=== PATIENT | female | born 1990 | race Caucasian/White ===

== ENCOUNTER 2017-06-05 09:21 | Emergency (ER) | payer BC ==
--- NOTE | 2017-06-05 10:24 | PD ---
HPI Chief Complaint decreased movement Date Seen: Jun 05, 2017 Travel History International Travel<30 Days: No Contact w/Intl Traveler<30Days: No History of Present Illness HPI Ms. Griffin is a 26 yo G1 patient of [address] King at 22 weeks GA who presents with complaint of decreased movement. Patient reports that she has felt her gestation move frequently /regularly for the past 2 weeks but states that since last night she has not felt him move as often. Patient does not report any associated vaginal bleeding or abdominal pain ; she has had some mild constant vaginal discharge during . Patient reports that she has had morning sickness frequently during , but did not have any vomiting today or yesterday morning so this also concerned her that there might something wrong. Patient reports occasional dysuria (pressure prior to urinating and burning with urination) every several days for the past several weeks; she has not felt this today. Patient also reports occasional headaches recently. No chest pain, shortness of breath or leg swelling. No reported fevers or abnormal bowel movements. Patient has PMH asthma and uses Albuterol PRN; she has not needed this recently. Patient reports benign course. She also had reassuring anatomical US recently; she reports normal fetus and posterior placenta. Patient was prescribed Diclegis for morning sickness but has not needed to take. Weeks Gestation: 22 : 1 History Past Medical History Narrative Medical Asthma- uses Ventolin with exercise Obstetric History Obstetric History G1 Past Surgical History Surgical History: No Previous Surgery Family History Narrative Family History unspecified lymphoma prostate cancer heart disease ?breast cancer Family History: Negative Social History Alcohol Use: No Tobacco Use: No Substance Abuse: No Review of Systems General / Constitutional: No: Fever Eyes: No: Blurred Vision HENT: No: Headaches Cardiovascular: No: Chest Pain or Discomfort Respiratory: No: Short of Breath Gastrointestinal: Vomiting (none for past 2 days; morning sickness over past several weeks) Genitourinary: Dysuria (occasional dysuria, none today), No: Urgency Skin: No Rash, No Itching Neurologic: No: Weakness, Dizziness Psychiatric: No: Anxiety Physical Exam T 97.7 BP 115/57 HR 72 RR 18 Narrative GENERAL: Well-nourished, well-developed patient. SKIN: Warm and dry. HEAD: Normocephalic and atraumatic. EYES: No scleral icterus. No injection or drainage. ENT: No nasal drainage noted. Mucous membranes pink. Airway patent. CARDIOVASCULAR: Regular rate and rhythm without murmurs. Normal perfusion RESPIRATORY: CTAB; normal rate EXTREMITIES: No cyanosis or edema. BACK: Nontender without obvious deformity. No CVA tenderness. NEUROLOGICAL: Awake and alert. Motor and sensory function grossly within normal limits. ABDOMEN/GI: Abdomen soft, non-tender, bowel sounds present, no rebound, no guarding Gravid GENITOURINARY: Membranes: Intact FHT's: FHR 142 MDM Medical Record Reviewed: Yes Narrative Course / MDM Ms. Griffin is a 26 yo G[address] King at 22 weeks GA who presents with complaint of decreased movement. -FHR 142 -Stable maternal VS -Physical exam benign -Urinalysis obtained- negative Plan: -Patient was reassured that her presence of normal heart tones was very reassuring at this gestational age. Patient instructed that she was safe to return home and follow- up with Dr. King. Patient advised to return to OB ED with any persistent concerns for fetus or any vaginal bleeding, abdominal pain, or other new symptoms. Discussed with Andah Diagnosis Diagnosis: Primary Impression: Decreased movement Additional Impression: 22 weeks gestation of Disposition: DISCHARGE HOME Condition: Stable Patient Instructions: General Instructions, Movement (ED) Floyd Lagunas MD, R3 Jun 05, 2017 10:24
== END 2017-06-05 10:38 | disposition home or self-care (01) ==
LOC: HOBED 09:21
DX: O36.8120 Decreased fetal movements, second trimester, not applicable or unspecified (principal); O99.512 Diseases of the respiratory system complicating pregnancy, second trimester; J45.909 Unspecified asthma, uncomplicated; Z3A.22 22 weeks gestation of pregnancy
CPT/HCPCS: 99283

== ENCOUNTER 2017-09-30 00:33 | Inpatient (IN) | payer BC ==
[~2017-09-30] VITALS: Ht 157.5 cm; Wt 64.4 kg
[2017-09-30] MEDS ORDERED: UNIS25TA3 (01:15)
[2017-09-30] MEDS ORDERED: PRENTAB7 (01:15)
[2017-09-30] MEDS ORDERED: LACTATED RINGER'S 1000 ML INJ 1,000 ML IV PRN (01:29)
[2017-09-30] MEDS ORDERED: SODIUM CHLORID 0.9% 500 ML INJ 500 ML IV PRN (01:30)
[2017-09-30] MEDS ORDERED: MINERAL OIL 10 ML VIAL TOPICAL PRN (01:30)
[2017-09-30] MEDS ORDERED: OXYTOCIN 30 UNITS-500ML PREMIX 500 ML IV ONE (01:30)
[2017-09-30] MEDS ORDERED: CITRIC ACID-SODIUM CITRATE LIQ 30 ML UDC PO SCH (01:30)
[2017-09-30] MEDS ORDERED: LIDOCAINE HCL 1% 50 ML VIAL I-DERMAL PRN (01:30)
[2017-09-30] MEDS ORDERED: LIDOCAINE HCL 1% 50 ML VIAL INFIL PRN (01:30)
[2017-09-30] MEDS ORDERED: ONDANSETRON HCL 4 MG/2 ML VIAL IV PUSH PRN (01:30)
--- NOTE | 2017-09-30 01:43 | HHI.HP ---
History & Physical H&P HPI Chief Complaint leak of fluid Date Seen: September 30, 2017 Time Seen: 01:36 Travel History International Travel<30 Days: No Contact w/Intl Traveler<30Days: No Known Affected Area: No History of Present Illness HPI pt. is a 27 y/o @ 38 5/7 weeks presents w/ lof. pt. states was up to use the bathroom and noticed pop and leak of fluid. knew not urine as continued. + FM, no vb, irreg ctxs. at time of present, pt. nted to have gross srom. Weeks Gestation: 38 Para: 0 : 1 History (Limited) History Past Medical History Medical History: Denies Significant Hx Obstetric History Obstetric History Past Surgical History Surgical History: No Previous Surgery Family History Family History: Negative Social History Alcohol Use: No Tobacco Use: No Substance Abuse: No Allergies-Medications Allergies-Medications (Allergen,Severity, Reaction): Coded Allergies: No Known Allergies (Unverified , 09/30/17) Home Meds Reported Medications Doxylamine Succinate (Unisom Sleep Aid) 25 Mg Tablet 09/30/17 Pnv No.95/Ferrous Fum/Folic AC ( Vitamins Tablet) 28 Mg Iron-800 Mcg Tablet 09/30/17 ROS Review of Systems Except as stated in HPI: all other systems reviewed are Neg Physical Exam Physical Exam Narrative GENERAL: Well-nourished, well-developed patient. SKIN: Warm and dry. HEAD: Normocephalic and atraumatic. EYES: No scleral icterus. No injection or drainage. ENT: No nasal drainage noted. Mucous membranes pink. Airway patent. NECK: Supple, trachea midline. No JVD. CARDIOVASCULAR: Regular rate and rhythm without murmurs, gallops, or rubs. RESPIRATORY: Breath sounds equal bilaterally. No accessory muscle use. ABDOMEN/GI: Abdomen soft, non-tender, bowel sounds present, no rebound, no guarding Gravid GENITOURINARY: External Genitalia: intact and normal in appearance Cervix: post Dilatation: closed Effacement: 70 Station: high Membranes: ruptured Uterine Contractions: irreg FHT's: Category:1 Reactive: + Variability: mod Decels: none EXTREMITIES: No cyanosis or edema. BACK: Nontender without obvious deformity. No CVA tenderness. NEUROLOGICAL: Awake and alert. Motor and sensory grossly within normal limits. Five out of 5 muscle strength in all muscle groups. Normal speech. Data Data Data Vital Signs Reviewed: Yes Orders Orders Ob (2e) Additional Admit Info (09/30/17 01:05) Admit To Inpatient (09/30/17 ) Code Status (09/30/17:29) Vital Signs (Adult) .Per protocol (09/30/17 01:29) Heart (09/30/17:29) Amnioinfusion (09/30/17:) Urinary Catheter Management .ONCE (09/30/17:29) Diet Liquid (09/30/17 Breakfast) Lactated Ringer's 1000 Ml Inj (Lr 1000 M (09/30/17 01:29) Lactated Ringer's 1000 Ml Inj (Lr 1000 M (09/30/17:29) Sodium Chlorid 0.9% 500 Ml Inj (Ns 500 M (09/30/17 01:30) Sodium Chlor 0.9% 1000 Ml Inj (Ns 1000 M (09/30/17 01:49) Lidocaine 1% Inj (50 Ml) (Xylocaine 1% I (09/30/17 01:30) Citric Acid-Sodium Citrate Liq (Bicitra (09/30/17 01:30) Ondansetron Inj (Zofran Inj) (09/30/17 01:30) Fentanyl Inj (Fentanyl Inj) (09/30/17 01:30) Fentanyl Inj (Fentanyl Inj) (09/30/17 01:30) Complete Blood Count With Diff (09/30/17:29) Hold Clot (09/30/17:29) Abo/Rh Blood Type (09/30/17:29) Urinalysis - C+S If Indicated (09/30/17:29) Drug Screen, Random Urine (09/30/17:29) Ob/Psych Drug Screen, Urine (09/30/17:29) Resp Oxygen Non Rebreathe Mask (09/30/17 ) ^ Epidural / Intrathecal Infus (09/30/17:29) Oxytocin 30 Units-500ml Premix (Pitocin (09/30/17 01:30) Lidocaine 1% Inj (50 Ml) (Xylocaine 1% I (09/30/17 01:30) Light Mineral Oil (Muri-Lube Oil) (09/30/17 01:30) Inpatient Certification (09/30/17 ) ^ Non Stress Test (09/30/17 01:35) Response To Medication .Post New Med Administration, Reaction (09/30/17 01:35) ^ Discontinue Medication (09/30/17 01:35) Oxytocin Drip (30) (09/30/17 01:45) Group B Strep: Negative MDM MDM Medical Record Reviewed: Yes Plan pt. w/ srom. pt. to have low dose pitocin per dr. curry. pt. may have epidural vs fentanyl for analgesia. fht reassuring. Diagnosis Diagnosis: Primary Impression: Rupture of membranes with clear amniotic fluid Additional Impression: 38 weeks gestation of Deng Galvan Jr., MD September 30, 2017 01:43
[2017-09-30] MEDS ORDERED: OXYTOCIN 30 UNITS-500ML PREMIX 500 ML IV PRN ×2 (01:45→09:30)
[2017-09-30] MEDS ORDERED: SODIUM CHLOR 0.9% 1000 ML INJ 1,000 ML IV PRN (01:49)
[2017-09-30 02:43] LABS: AUTOMATED NEUTROPHIL # 7.2 TH/MM3 (1.8-7.7); BASOPHIL % 0.2 % (0.0-2.0); EOSINOPHIL # 0.1 TH/MM3 (0-0.4); EOSINOPHIL % 0.7 % (0.0-4.0); HEMATOCRIT 32.8 % (35.0-46.0); HEMOGLOBIN 11.5 GM/DL (11.6-15.3); LYMPH % 18.3 % (9.0-44.0); LYMPHOCYTE # 1.8 TH/MM3 (1.0-4.8); MEAN CELL VOLUME 90.1 FL (80.0-100.0); MEAN CORPUSCULAR HEMOGLOBIN 31.6 PG (27.0-34.0); MEAN CORPUSCULAR HGB CONC 35.1 % (32.0-36.0); MEAN PLATELET VOLUME 8.4 FL (7.0-11.0); MONO % 7.5 % (0.0-8.0); MONOCYTE # 0.7 TH/MM3 (0-0.9); NEUT % 73.3 % (16.0-70.0); PLATELET COUNT 212 TH/MM3 (150-450); RED BLOOD COUNT 3.64 MIL/MM3 (4.00-5.30); RED CELL DISTRIBUTION WIDTH 13.6 % (11.6-17.2); WHITE BLOOD COUNT 9.8 TH/MM3 (4.0-11.0)
[2017-09-30 02:45] LABS: BILIRUBIN, URINE NEG (NEG); BLOOD, URINE NEG (NEG); GLUCOSE,URINE NEG (NEG); KETONE, URINE NEG (NEG); NITRITE,URINE NEG (NEG); SQUAMOUS EPITHELIAL CELL URINE 1 /hpf (0-5); URINE COLOR YELLOW (YELLW/STRAW); URINE LEUKOCYTE ESTERASE NEG (NEG)
[2017-09-30] MEDS: LACTATED RINGER'S 1000 ML INJ 1,000 ML IV SCH ×2 (06:15→09:15)
--- NOTE | 2017-09-30 08:11 | PD.LABORPN ---
Subjective Subjective feeling pressure and increased frequency of contractions, still able to ambulate without too much discomfort Objective Objective Pelvic Exam: Cervix: [mid] Dilatation: [1] Effacement: [90] Station: [-2] Presentation: [vtx] Membranes: [SROM'd at 11p 09/29/17] Uterine Contractions: [irregular, q5-10 min] FHT's: Category: [I] Weeks Gestation: 38 Pt started active labor?: Yes Medical induction of labor?: No Artificial rupture of membrane: No Assessment/Plan Problem List: (1) Rupture of membranes with clear amniotic fluid Status: Acute (2) 38 weeks gestation of ICD Codes: Z3A.38 - 38 weeks gestation of Status: Acute Assessment and Plan due to no cervical change since admission d/w pt & recommend augment with pitocin; they are amenable, will allow to eat breakfast then start pitocin Cat I tracing Tish King MD September 30, 2017 08:11
[2017-09-30] MEDS ORDERED: ePHEDrine/NS 25 MG/5 ML SYRINGE ONE (15:10)
[2017-09-30] MEDS ORDERED: fentaNYL 2MCG-BUPIV 0.125% INJ 150 ML EPIDURAL ONE (15:11)
[2017-09-30] MEDS ORDERED: LIDOCAINE 1.5%/EPINEPHrine 1:200,000 PF 5 ML AMP ONE (15:47)
[2017-09-30] MEDS ORDERED: LIDOCAINE HCL 1.5% PF 20 ML AMP ONE (15:47)
[2017-09-30] MEDS ORDERED: NO SYSTEM NARCOTICS PRN ×2 (17:00→17:45)
[2017-09-30] MEDS ORDERED: ePHEDrine/NS 25 MG/5 ML SYRINGE IV PUSH PRN ×2 (17:00→17:45)
[2017-09-30] MEDS ORDERED: DO NOT ADMINISTER ANTICOAGULANTS PRN ×2 (17:00→17:45)
[2017-09-30] MEDS ORDERED: fentaNYL 2MCG-BUPIV 0.125% 150 ML EPIDURAL PRN ×2 (17:00→17:45)
[2017-09-30] MEDS ORDERED: fentaNYL 2MCG-BUPIV 0.125% 100 ML EPIDURAL PRN (17:45)
--- NOTE | 2017-10-01 00:59 | PD.OB.DELI ---
Weeks gestation: 38 Pt started active labor?: Yes Medical induction of labor?: No Artificial rupture of membrane: No Anesthesia: Epidural Episiotomy: None Vaginal Delivery: Normal Presentation: Vertex Nuchal Cord: x1 (clamped & cut at perineum) Delayed cord clamping (45 sec): No (tight nuchal clamped & cut at perineum) : Male, Single Delivery date: October 01, 2017 Delivery time: 00:47 One Minute : 7 Five Minute : 8 Placenta: Spontaneous delivery, Intact, 3 vessel cord Laceration: Perineal laceration, 2 deg Repair: Vicryl running Estimated blood loss: 300 mL Additional Information uncomplicated spontaneous vaginal delivery of healthy male infant "Domingo" Tish King MD October 01, 2017 00:59
[2017-10-01] MEDS ORDERED: ACETAMINOPHEN 325 MG TAB PO PRN (01:15)
[2017-10-01] MEDS ORDERED: OXYTOCIN 30 UNITS-500ML PREMIX 500 ML IV SCH (01:15)
[2017-10-01] MEDS ORDERED: oxyCODONE/ACETAMINOPHEN 5 MG/325 MG TAB PO PRN ×2 (01:15)
[2017-10-01] MEDS ORDERED: ONDANSETRON ODT 4 MG TAB PO PRN (01:15)
[2017-10-01] MEDS ORDERED: SODIUM CHLORIDE 0.9% FLUSH 10 ML FLUSH IV FLUSH PRN (01:15)
[2017-10-01] MEDS ORDERED: ALUMINUM/MAGNESIUM/SIMETH 30 ML CUP PO PRN (01:15)
[2017-10-01] MEDS ORDERED: ZOLPIDEM TARTRATE 5 MG TAB PO PRN (01:15)
[2017-10-01] MEDS: WITCH HAZEL 50%/GLYCERIN 12.5% 40 PAD JAR TOPICAL PRN (03:15)
[2017-10-01] MEDS: BENZOCAINE 20% TOPICAL SPRAY 60 ML CAN TOPICAL PRN (03:15)
[2017-10-01] MEDS: IBUPROFEN 800 MG TAB PO PRN ×2 (05:56→14:07)
--- NOTE | 2017-10-01 07:56 | HHI.OB ---
Subjective Post Day: 0 Remarks doing well, resting comfortably, baby well Objective Vitals/I&O vss afeb Objective Remarks GENERAL: Well-nourished, well-developed patient. CARDIOVASCULAR: Regular rate and rhythm without murmurs, gallops, or rubs. RESPIRATORY: Breath sounds equal bilaterally. No accessory muscle use. ABDOMEN/GI: Abdomen soft, non-tender. Fundus: Firm, non-tender at umbilicus. GENITOURINARY: Light to moderate bleeding. EXTREMITIES: No cyanosis or edema, non-tender, without signs of DVT. Medications and IVs Current Medications Medications (Trade) Dose Ordered Sig/Nahomy Route Start Time Stop Time Status Last Admin (NS Flush) 2 ml BID IV FLUSH 10/01/17 01:15 (NS Flush) 2 ml UNSCH PRN IV FLUSH 10/01/17 01:15 (Tylenol) 650 mg Q4H PRN PO 10/01/17 01:15 (Motrin) 800 mg Q8H PRN PO 10/01/17 01:15 10/01/17 05:56 (Percocet 5-325 Mg) 1 tab Q4H PRN PO 10/01/17 01:15 (Percocet 5-325 Mg) 2 tab Q4H PRN PO 10/01/17 01:15 (Americaine 20% Top Spr) 1 spray Q4H PRN TOPICAL 10/01/17 01:15 10/01/17 03:15 (Tucks Pads) 1 applic QID PRN TOPICAL 10/01/17 01:15 10/01/17 03:15 (Rosibel-Colace) 2 tab Q12H PRN PO 10/01/17 01:15 (Ambien) 5 mg HS PRN PO 10/01/17 01:15 (M-M-R Ii Inj) 0.5 ml ONCE ONCE SQ 10/01/17 16:00 10/01/17 16:01 (Boostrix Inj) 0.5 ml ONCE ONCE IM 10/01/17 16:00 10/01/17 16:01 (Mag-Al Plus Susp Liq) 15 ml Q8H PRN PO 10/01/17 01:15 (Zofran Odt) 4 mg Q6H PRN PO 10/01/17 01:15 Assessment/Plan Problem List: (1) Rupture of membranes with clear amniotic fluid Status: Acute (2) 38 weeks gestation of ICD Codes: Z3A.38 - 38 weeks gestation of Status: Acute (3) (spontaneous vaginal delivery) ICD Codes: O80 - Encounter for full-term uncomplicated delivery Assessment and Plan s/p PPD #0 routine PP care Discharge Planning routine Attending Attestation pt seen by Manju Bolden MD October 01, 2017 07:56
[2017-10-01] MEDS: SODIUM CHLORIDE 0.9% FLUSH 10 ML FLUSH IV FLUSH SCH (10:12)
[2017-10-01] MEDS ORDERED: DIPHTH/TETANUS/ACEL PERTUSSIS (BOOSTER) 0.5 ML VIAL/PFS IM ONE (16:00)
[2017-10-01] MEDS ORDERED: MEASLES, MUMPS, RUBELLA VACCINE 0.5 ML VIAL SQ ONE (16:00)
[2017-10-01 20:31] VITALS: BP 109/74; PULSE 61; RESP 16; TEMP 97.5
[2017-10-02] MEDS: IBUPROFEN 800 MG TAB PO PRN ×3 (00:25→17:21)
[2017-10-02] MEDS: DOCUSATE SODIUM 50 MG/SENNA 8.6 MG TAB PO PRN ×2 (00:25→18:33)
[2017-10-02] MEDS: WITCH HAZEL 50%/GLYCERIN 12.5% 40 PAD JAR TOPICAL PRN ×2 (00:27→18:39)
[2017-10-02] MEDS: SODIUM CHLORIDE 0.9% FLUSH 10 ML FLUSH IV FLUSH SCH (08:46)
--- NOTE | 2017-10-02 08:48 | HHI.OB ---
Subjective Post Day: 1 Remarks doing well mom coming from [place] to help no baby blues nursing declines circumcision Objective Vitals/I&O Vital Signs Date Time Temp Pulse Resp B/P (MAP) Pulse Ox O2 Delivery O2 Flow Rate FiO2 10/01/17 20:31 97.5 61 16 109/74 (86) Objective Remarks GENERAL: Well-nourished, well-developed patient. CARDIOVASCULAR: Regular rate and rhythm without murmurs, gallops, or rubs. RESPIRATORY: Breath sounds equal bilaterally. No accessory muscle use. ABDOMEN/GI: Abdomen soft, non-tender. Fundus: Firm, non-tender at umbilicus. GENITOURINARY: Light to moderate bleeding. EXTREMITIES: No cyanosis or edema, non-tender, without signs of DVT. Medications and IVs Current Medications Medications (Trade) Dose Ordered Sig/Nahomy Route Start Time Stop Time Status Last Admin (NS Flush) 2 ml BID IV FLUSH 10/01/17 01:15 10/01/17 10:12 (NS Flush) 2 ml UNSCH PRN IV FLUSH 10/01/17 01:15 (Tylenol) 650 mg Q4H PRN PO 10/01/17 01:15 (Motrin) 800 mg Q8H PRN PO 10/01/17 01:15 10/02/17 00:25 (Percocet 5-325 Mg) 1 tab Q4H PRN PO 10/01/17 01:15 (Percocet 5-325 Mg) 2 tab Q4H PRN PO 10/01/17 01:15 (Americaine 20% Top Spr) 1 spray Q4H PRN TOPICAL 10/01/17 01:15 10/01/17 03:15 (Tucks Pads) 1 applic QID PRN TOPICAL 10/01/17 01:15 10/02/17 00:27 (Rosibel-Colace) 2 tab Q12H PRN PO 10/01/17 01:15 10/02/17 00:25 (Ambien) 5 mg HS PRN PO 10/01/17 01:15 (Mag-Al Plus Susp Liq) 15 ml Q8H PRN PO 10/01/17 01:15 (Zofran Odt) 4 mg Q6H PRN PO 10/01/17 01:15 Assessment/Plan Problem List: (1) Rupture of membranes with clear amniotic fluid Status: Acute (2) 38 weeks gestation of ICD Codes: Z3A.38 - 38 weeks gestation of Status: Acute (3) (spontaneous vaginal delivery) ICD Codes: O80 - Encounter for full-term uncomplicated delivery Assessment and Plan s/p PPD #0 routine PP care 10/02/17 doing well PPD 1 anticipate discharge with counseling in am RTO 2 weeks Discharge Planning routine Luzmaria Nieves MD October 02, 2017 08:48
[2017-10-02] MEDS: BENZOCAINE 20% TOPICAL SPRAY 60 ML CAN TOPICAL PRN (18:39)
[2017-10-03] MEDS: IBUPROFEN 800 MG TAB PO PRN ×2 (01:46→10:13)
--- NOTE | 2017-10-03 09:35 | HHI.OB ---
Subjective Post Day: 2 Remarks Doing well baby may have bilirubin issues will discharge and have up in peds if needed pain controlled family coming from [place] Objective Objective Remarks GENERAL: Well-nourished, well-developed patient. CARDIOVASCULAR: Regular rate and rhythm without murmurs, gallops, or rubs. RESPIRATORY: Breath sounds equal bilaterally. No accessory muscle use. ABDOMEN/GI: Abdomen soft, non-tender. Fundus: Firm, non-tender at umbilicus. GENITOURINARY: Light to moderate bleeding. EXTREMITIES: No cyanosis or edema, non-tender, without signs of DVT. Medications and IVs Current Medications Medications (Trade) Dose Ordered Sig/Nahomy Route Start Time Stop Time Status Last Admin (NS Flush) 2 ml BID IV FLUSH 10/01/17 01:15 10/01/17 10:12 (NS Flush) 2 ml UNSCH PRN IV FLUSH 10/01/17 01:15 (Tylenol) 650 mg Q4H PRN PO 10/01/17 01:15 (Motrin) 800 mg Q8H PRN PO 10/01/17 01:15 10/03/17 01:46 (Percocet 5-325 Mg) 1 tab Q4H PRN PO 10/01/17 01:15 (Percocet 5-325 Mg) 2 tab Q4H PRN PO 10/01/17 01:15 (Americaine 20% Top Spr) 1 spray Q4H PRN TOPICAL 10/01/17 01:15 10/02/17 18:39 (Tucks Pads) 1 applic QID PRN TOPICAL 10/01/17 01:15 10/02/17 18:39 (Rosibel-Colace) 2 tab Q12H PRN PO 10/01/17 01:15 10/02/17 18:33 (Ambien) 5 mg HS PRN PO 10/01/17 01:15 (Mag-Al Plus Susp Liq) 15 ml Q8H PRN PO 10/01/17 01:15 (Zofran Odt) 4 mg Q6H PRN PO 10/01/17 01:15 Assessment/Plan Problem List: (1) Rupture of membranes with clear amniotic fluid Status: Acute (2) 38 weeks gestation of ICD Codes: Z3A.38 - 38 weeks gestation of Status: Acute (3) (spontaneous vaginal delivery) ICD Codes: O80 - Encounter for full-term uncomplicated delivery Assessment and Plan s/p PPD #0 routine PP care 10/02/17 doing well PPD 1 anticipate discharge with counseling in am RTO 2 weeks Discharge Planning routine Luzmaria Nieves MD October 03, 2017 09:35
[2017-10-03] MEDS ORDERED: IBUP1TAB7 PO (09:36)
--- NOTE | 2017-10-03 09:36 | HHI.DCPOC ---
Discharge Care Plan Report Symptoms to Your Doctor -Temperature above 100.5 degrees -Redness, of incision or excessive or foul smelling drainage -Unusual pain or calf pain -Increased vaginal bleeding -Painful or difficulty urinating -Feelings of extreme sadness or anxiety after 2 weeks Goals to Promote Your Health * To prevent worsening of your condition and complications * To maintain your health at the optimal level Directions to Meet Your Goals Take your medications as prescribed Follow your dietary instruction Follow activity as directed Ensure plenty of rest for recovery Drink fluids for hydration Keep your appointments as scheduled Take your immunizations and boosters as scheduled If your symptoms worsen call your PCP, if no PCP go to Urgent Care Center or Emergency Room Smoking is Dangerous to Your Health. Avoid second hand smoke Call the 24-hour crisis hotline for domestic abuse at Luzmaria Nieves MD October 03, 2017 09:36
== END 2017-10-03 13:09 | disposition home or self-care (01) | DRG 775 ==
LOC: HOBED 00:33 → H2EA 01:06 → H1EA 10-01 02:59
PROVIDERS: ADMIT Obstetrics & Gynecology; ATTEND Obstetrics & Gynecology
PROC: 3E0R3BZ Introduction of Anesthetic Agent into Spinal Canal, Percutaneous Approach (ICD-10-PCS; 2017-09-30)
PROC: 00HU33Z Insertion of Infusion Device into Spinal Canal, Percutaneous Approach (ICD-10-PCS; 2017-09-30)
PROC: 10E0XZZ Delivery of Products of Conception, External Approach (ICD-10-PCS; principal; 2017-10-01)
PROC: 0KQM0ZZ Repair Perineum Muscle, Open Approach (ICD-10-PCS; 2017-10-01)
DX: O69.81X0 Labor and delivery complicated by cord around neck, without compression, not applicable or unspecified (principal); O70.1 Second degree perineal laceration during delivery; Z37.0 Single live birth; Z3A.38 38 weeks gestation of pregnancy
CPT/HCPCS: 80307; 81001; 85025; 86900; 86901; 99283; G0481; J2590; J3010; J7120